=== PATIENT | male | born 1985 | race Caucasian/White ===

== ENCOUNTER 2024-04-16 19:25 | Emergency (ER) | payer MEDICARE ==
[2024-04-16] MEDS ORDERED: methocarbamoL 750 MG TAB ONE (20:40)
[2024-04-16] MEDS ORDERED: ONDANSETRON 4 MG/2 ML VIAL ONE (20:40)
[2024-04-16] MEDS ORDERED: HYDROCORTISONE SUC 100 MG INJ ONE (20:41)
[2024-04-16] MEDS ORDERED: MORPHINE 4 MG/ML SYR ONE (20:41)
[2024-04-16] MEDS ORDERED: KETOROLAC 30 MG/ML INJ ONE (20:41)
--- NOTE | 2024-04-16 21:58 | RAD REPORT ---
EXAM DESCRIPTION: CT - Spine Lumbar Wo Con - 04/16/2024 9:22 pm CLINICAL HISTORY: Radiculopathy. lumbar pain COMPARISON: <Comparisons> TECHNIQUE: Axial noncontrast CT imaging of the lumbar spine was performed with coronal and sagittal re-formatted images. All CT scans are performed using dose optimization technique as appropriate and may include automated exposure control or mA/KV adjustment according to patient size. FINDINGS: No acute lumbar spine fracture seen. No aggressive marrow pattern or malalignment. Paraspinal tissues are normal in thickness. No paraspinal abscess or hematoma seen. 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 Mild posterior disc bulges are present lower lumbar spine. IMPRESSION: No acute lumbar spine abnormality seen. Mild lower lumbar spondylosis is present.
[2024-04-16] MEDS ORDERED: HYDROCODONE/APAP 10/325 TAB ONE (22:09)
--- NOTE | 2024-04-16 22:10 | EDPHYS ---
Physician Documentation [facility] Name: Javed Mejia Age: 39 yrs Sex: Male : 1985 Arrival Date: 04/16/2024 Time: 19:25 Bed 17 Private MD: ED Physician Igor Hannah HPI: 04/16 22:04 This 39 yrs old Male presents to ER via Ambulatory with complaints of Low sp4 Back Pain, Leg Pain - leg weakness. 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 - Infectious Disease History:: Denies. - Social history:: Smoking status: Reported history of juuling and/or vaping. Vital Signs: 20:03 Pain 10/10; vc1 21:44 BP 135 / 75; Pulse 73; Pulse Ox 100% on R/A; Pain 7/10; tm6 22:22 BP 134 / 80; Pulse 74; Resp 19; Temp 97.1(TE); Pulse Ox 99% on R/A; Pain 4/10; tm6 20:03 Pain Scale: Adult vc1 21:44 Pain Scale: Adult tm6 22:22 Pain Scale: Adult tm6 MDM: 20:04 Patient medically screened. sp4 22:03 ED course: Exam Date: 04/16/24 EXAM DESCRIPTION: CT - Spine Lumbar Wo Con - 04/16/2024 sp4 9:22 pm CLINICAL HISTORY: Radiculopathy. lumbar pain COMPARISON: TECHNIQUE: Axial noncontrast CT imaging of the lumbar spine was performed with coronal and sagittal re-formatted images. All CT scans are performed using dose optimization technique as appropriate and may include automated exposure control or mA/KV adjustment according to patient size. FINDINGS: No acute lumbar spine fracture seen. No aggressive marrow pattern or malalignment. Paraspinal tissues are normal in thickness. No paraspinal abscess or hematoma seen. 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 Mild posterior disc bulges are present lower lumbar spine. IMPRESSION: No acute lumbar spine abnormality seen. Mild lower lumbar spondylosis is present . 22:08 ED course: Exam Date: 04/16/24 EXAM DESCRIPTION: CT - Spine Lumbar Wo Con - 04/16/2024 sp4 9:22 pm CLINICAL HISTORY: Radiculopathy. lumbar pain COMPARISON: TECHNIQUE: Axial noncontrast CT imaging of the lumbar spine was performed with coronal and sagittal re-formatted images. All CT scans are performed using dose optimization technique as appropriate and may include automated exposure control or mA/KV adjustment according to patient size. FINDINGS: No acute lumbar spine fracture seen. No aggressive marrow pattern or malalignment. Paraspinal tissues are normal in thickness. No paraspinal abscess or hematoma seen. 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 Mild posterior disc bulges are present lower lumbar spine. IMPRESSION: No acute lumbar spine abnormality seen. Mild lower lumbar spondylosis is present. 04/16 20:13 Order name: CT Lumbar Spine Wo Con; Complete Time: 22:07 sp4 04/16 20:12 Order name: Saline Lock; Complete Time: 20:55 sp4 Administered Medications: 20:48 Drug: Ondansetron IVP 4 mg IVP once; over 2 minutes Route: IVP; Site: right antecubital;nj1 20:50 Drug: Ketorolac IVP 30 mg IVP once Route: IVP; Site: right antecubital; nj1 20:51 Drug: Solu-CORTEF IVP 100 mg IVP once Route: IVP; Site: right antecubital; nj1 20:55 Drug: morphine IVP or IV 8 mg IVP once over 4 mins Route: IVP; Infused Over: 4 mins; nj1 Site: right antecubital; 20:55 Drug: Methocarbamol PO 1500 mg PO once Route: PO; nj1 22:23 Drug: [place] PO 10 mg-325 mg 1 tabs PO once Route: PO; tm6 22:55 Drug: Baclofen PO 10 mg PO once Route: PO; tm6 Disposition Summary: 04/16/24 22:09 Discharge Ordered Problem: new sp4 Symptoms: have improved sp4 Condition: Stable sp4 Diagnosis - Low back pain sp4 - Acute lumbar sprain, sp4 Followup: sp4 - With: Michel Ott MD - When: 7 - 10 days - Reason: Recheck today's complaints Discharge Instructions: - Discharge Summary Sheet sp4 - Acute Back Pain, Adult sp4 Forms: - Patient Portal Instructions sp4 - Work release form tm6 Prescriptions: - naproxen 500 mg Oral tablet - take 1 tablet ORAL route every 8 hours as needed for pain; 30 tablet; Refills: sp4 0, Product Selection Permitted - tramadol 100 mg Oral tablet - take 1 tablet ORAL route every 8 hours PRN pain; 20 tablet; Refills: 0, Product sp4 Selection Permitted - Baclofen 10 mg Oral tablet - take 1 tablet ORAL route 3 times per day; 60 tablet; Refills: 0, Product sp4 Selection Permitted Signatures: Dispatcher [employer] Rosa Castellon RN RN vc1 Igor Hannah MD MD sp4 Yesenia Fisher RN RN nj1 Joni Moise RN RN tm6
--- NOTE | 2024-04-16 22:10 | ER ---
Nurse's Notes [facility] Name: Javed Mejia Age: 39 yrs Sex: Male : 1985 Arrival Date: 04/16/2024 Time: 19:25 Bed 17 Private MD: Diagnosis: Low back pain;Acute lumbar sprain, Presentation: 04/16 20:03 Chief complaint: Chief complaint: Patient states: Back pain with severe leg weakness. vc1 20:03 Coronavirus screen: Client denies travel out of the [place] in the last 14 days. At this vc1 time, the client does not indicate any symptoms associated with coronavirus-19. Ebola Screen: Patient negative for fever greater than or equal to 101.5 degrees Fahrenheit, and additional compatible Ebola Virus Disease symptoms Patient denies exposure to infectious person. Patient denies travel to an Ebola-affected area in the 21 days before illness onset. No symptoms or risks identified at this time. Initial Sepsis Screen: Does the patient meet any 2 criteria? No. Patient's initial sepsis screen is negative. Does the patient have a suspected source of infection? No. Patient's initial sepsis screen is negative. Risk Assessment: Do you want to hurt yourself or someone else? Patient reports no desire to harm self or others. Onset of symptoms is unknown. 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 - Infectious Disease History:: Denies. - Social history:: Smoking status: Reported history of juuling and/or vaping. Screenin:01 [facility] ED Fall Risk Assessment (Adult) History of falling in the last 3 months, nj1 including since admission Yes- physiologic fall (2 pts) Confusion or Disorientation No (0 pts) Intoxicated or Sedated No (0 pts) Impaired Gait Yes (1 pt) Mobility Assist Device Used Yes (1 pt) Altered Elimination No (0 pt) Score/Fall Risk Level 3 or more points = High Risk Oriented to surroundings, Maintained a safe environment, Hourly rounding (assess needs \T\ fall precautionary measures) done, Utilized family, sitter, or virtual sleeve sewer as indicated. Abuse screen: Denies threats or abuse. Denies injuries from another. Nutritional screening: No deficits noted. Tuberculosis screening: No symptoms or risk factors identified. Assessment: 20:45 General: Appears in no apparent distress. uncomfortable, Behavior is calm, cooperative, nj1 appropriate for age. Pain: Complains of pain in back Pain currently is 10 out of 10 on a pain scale. Neuro: Level of Consciousness is awake, alert, obeys commands, Oriented to person, place, time, situation, Gait is came in personal wheel chair. 20:45 Cardiovascular: Patient's skin is warm and dry. Respiratory: Airway is patent nj1 Respiratory effort is even, unlabored. 21:45 Reassessment: Patient and/or family updated on plan of care and expected duration. Pain tm6 level reassessed. Patient is alert, oriented x 3, equal unlabored respirations, skin warm/dry/pink. 22:22 Reassessment: Patient appears in no apparent distress at this time. tm6 22:22 Reassessment: discharge pending receipt of Baclofen from floor. Frame Table Operator Neela venegas is bringing. Vital Signs: 20:03 Pain 10/10; vc1 21:44 BP 135 / 75; Pulse 73; Pulse Ox 100% on R/A; Pain 7/10; tm6 22:22 BP 134 / 80; Pulse 74; Resp 19; Temp 97.1(TE); Pulse Ox 99% on R/A; Pain 4/10; tm6 20:03 Pain Scale: Adult vc1 21:44 Pain Scale: Adult tm6 22:22 Pain Scale: Adult tm6 ED Course: 19:30 Patient arrived in ED. ae5 20:02 Igor Hannah MD is Attending Physician. sp4 20:37 Yesenia Fisher RN is Primary Nurse. nj1 20:58 Triage completed. vc1 21:00 Report given to Joni Crisostomo RN. nj1 21:02 Arm band placed on. nj1 21:02 Patient has correct armband on for positive identification. Bed in low position. Call nj1 light in reach. Adult w/ patient. Provided Education on: call light, fall precautions. 21:23 CT Lumbar Spine Wo Con In Process Unspecified. EDMS 22:09 Michel Ott MD is Referral Physician. sp4 22:22 No provider procedures requiring assistance completed. IV discontinued, intact, tm6 bleeding controlled, No redness/swelling at site. Pressure dressing applied. Administered Medications: 20:48 Drug: Ondansetron IVP 4 mg IVP once; over 2 minutes Route: IVP; Site: right antecubital;nj1 20:50 Drug: Ketorolac IVP 30 mg IVP once Route: IVP; Site: right antecubital; nj1 20:51 Drug: Solu-CORTEF IVP 100 mg IVP once Route: IVP; Site: right antecubital; nj1 20:55 Drug: morphine IVP or IV 8 mg IVP once over 4 mins Route: IVP; Infused Over: 4 mins; nj1 Site: right antecubital; 20:55 Drug: Methocarbamol PO 1500 mg PO once Route: PO; nj1 22:23 Drug: [place] PO 10 mg-325 mg 1 tabs PO once Route: PO; tm6 22:55 Drug: Baclofen PO 10 mg PO once Route: PO; tm6 Medication: 21:02 VIS not applicable for this client. vc1 Outcome: 22:09 Discharge ordered by . sp4 22:22 Discharged to home via wheelchair, with family, tm6 22:22 Condition: stable 22:22 Discharge instructions given to patient, family, Instructed on discharge instructions, follow up and referral plans. medication usage, Demonstrated understanding of instructions, follow-up care, medications, Prescriptions given X 3, 22:57 Patient left the ED. tm6 Signatures: Dispatcher [employer] EDMS Rosa Dudley RN RN vc1 Igor Hannah MD MD sp4 Yesenia Fisher RN RN nj1 Joni Moise RN RN tm6 Marybel Hoang ae5 Corrections: (The following items were deleted from the chart) 20:58 20:55 Chief complaint: vc1 vc1
[2024-04-16] MEDS ORDERED: BACLOFEN 10 MG TAB ONE (22:36)
[2024-04-16 23:30] VITALS: BP 134/80; TEMP 97.1; O2SAT 99
== END 2024-04-16 22:57 | disposition home or self-care (01) ==
LOC: ER 19:25
DX: S33.5XXA Sprain of ligaments of lumbar spine, initial encounter (principal)
CPT/HCPCS: 72131; 96375; 96374; 99284; J1720; J2405

== ENCOUNTER 2024-06-17 08:56 | Emergency (ER) | payer MEDICARE ==
[2024-06-17] MEDS ORDERED: GABAPENTIN 300 MG CAP ONE ×3 (09:21→17:32)
[2024-06-17] MEDS ORDERED: FENTANYL CITR 100 MCG/2 ML ONE ×3 (09:21→15:36)
[2024-06-17] MEDS ORDERED: WATER FOR INJ,STERILE 10 ML ONE (09:22)
[2024-06-17] MEDS ORDERED: NA CHLORIDE 0.9% 100 ML ONE (09:28)
--- NOTE | 2024-06-17 10:06 | RAD REPORT ---
EXAM DESCRIPTION: [place] Single View06/17/2024 9:56 am CLINICAL HISTORY: Cough COMPARISON: none FINDINGS: The lungs appear clear of acute infiltrate. The heart is normal size IMPRESSION: No acute abnormalities displayed
[2024-06-17 10:19] LABS: Absolute Basophils 0.1 K/uL (0-0.5); Absolute Eosinophils 0.2 K/uL (0-0.5); Absolute Lymphocytes (CBC) 2.5 K/uL (0.7-4.9); Absolute Monocytes 0.6 K/uL (0.1-1.3); Absolute Neutrophil 3.9 K/uL (1.8-8.0); Basophils % 0.9 % (0-1.3); Eosinophils % 2.7 % (0-4.4); Hematocrit 36.8 % (39.6-49.0); Hemoglobin 12.5 g/dL (13.6-17.9); Lymphocytes % 34.7 % (15.3-44.8); MCH 29.3 pg (27.0-35.0); MCV 86.3 fL (80-100); MPV 7.6 fL (7.6-11.3); Monocytes % 7.6 % (3.3-12.3); Neutrophils % 54.1 % (41.7-73.7); Platelets 322 thou/uL (152-406); RBC Red Blood Cell Count 4.26 M/uL (4.33-5.43); Red Cell Distribution Width 13.6 % (12.1-15.2)
[2024-06-17 10:38] LABS: Anion Gap 8.1 mEq/L (5.0-15.0); BUN Blood Urea Nitrogen 12 mg/dL (7-18); Bicarbonate 26 mEq/L (21-32); Glomerular Filtration Rate 95 ml/min (=/>90); Glucose Level 116 mg/dL (74-106); Potassium 4.1 mEq/L (3.5-5.1); Sodium Level 138 mEq/L (136-145); Troponin High Sensitivity < 3.0 pg/mL (<58.9)
[2024-06-17 11:53] LABS: SARS-CoV-2 Antigen CONTROL BLUE LINE VIS/BG OK; SARS-CoV-2 Antigen Rapid Res Negative (Negative)
[2024-06-17] MEDS ORDERED: LORazepam 2 MG/ML VIAL ONE (12:20)
[2024-06-17] MEDS ORDERED: KETOROLAC 30 MG/ML INJ ONE (14:44)
--- NOTE | 2024-06-17 15:40 | RAD REPORT ---
EXAM DESCRIPTION: MRI - Brain W/Wo Cont - 06/17/2024 2:51 pm CLINICAL HISTORY: MS flare, BL LE weakness, eval for active lesions COMPARISON: None available. TECHNIQUE: Multiplanar multisequence MRI of the brain performed without IV contrast. FINDINGS: No evidence of acute infarct or other diffusion signal abnormality. No evidence of acute intracranial hemorrhage or abnormal extra-axial fluid collections. Ventricular caliber within normal for age. Midline structures are unremarkable. No discrete white matter signal abnormalities. No mass effect or midline shift. No abnormal enhancement Major vascular flow voids are preserved. Mastoid air cells are well aerated. Mild scattered inflammatory mucosal thickening throughout the par anasal sinuses. IMPRESSION: No acute intracranial process. No discrete white matter signal abnormalities to suggest demyelinating lesions on MRI. No evidence of abnormal enhancement or mass effect.
--- NOTE | 2024-06-17 16:01 | RAD REPORT ---
EXAM DESCRIPTION: MRI - Spine Lumbar W/Wo Cont - 06/17/2024 2:51 pm CLINICAL HISTORY: MS flare, BL LE weakness, eval for active lesions COMPARISON: No comparisons TECHNIQUE: Multiplanar multisequence MRI of the lumbar spine performed, before and after intravenous administration of 20 mL MultiHance. FINDINGS: Preserved lumbar lordosis without spondylolisthesis. Vertebral body heights are well main tained. No suspicious marrow signal. No paraspinal masses or edema. Conus terminates at the appropriate level, and demonstrates no focal signal abnormalities. Cauda equi na roots are unremarkable, with no clumping or thickening. No abnormal enhancement. T12-L1: No significant findings. L1-L2: No significant findings. L2-L3: No significant findings. L3-L4 level: No significant findings. L4-L5 level: Small central disc bulge. Mild facet arthropathy more so on the left. No significant jere tral canal or foraminal stenosis. L5-S1 level: Small central disc bulge. Mild to moderate facet arthropathy bilaterally with small extr insic synovial cyst on the left measuring 4 mm. No significant central canal stenosis or foraminal na rrowing. IMPRESSION: No signal abnormalities or abnormal enhancement along the distal cord or conus. Small disc bulges and mild to moderate facet arthropathy at L4-5 and L5-S1, without significant steno sis.
--- NOTE | 2024-06-17 16:10 | RAD REPORT ---
EXAM DESCRIPTION: MRI - C Spine W/Wo Cont - 06/17/2024 2:51 pm CLINICAL HISTORY: MS flare, BL LE weakness, eval for active lesions COMPARISON: None. TECHNIQUE: Multiplanar multisequence MRI of the cervical spine, obtained before and after intraven ous administration of 20 mL MultiHance. FINDINGS: Cervical vertebral bodies are normal in height and alignment. No suspicious marrow edema o r marrow replacing process. Cerebellar tonsils and mid-line skull base show no suspicious finding. No significant finding at the C1 and C2 levels. C2-3 level: No significant findings. C3-4 level: Asymmetric uncovertebral joint spurring on the left contributes to mild left neural cali inal narrowing. No central canal stenosis. C4-5 level: No significant findings. C5-6 level: No significant findings. C6-7 level: No significant findings. C7-T1 level: No significant findings. Cervical cord shows no focal narrowing, edema, or signal abnormality. No abnormal enhancement on the post-contrast images. IMPRESSION: Mild spondylotic changes at C3-4 contributing to mild left neural foraminal narrowing. O therwise normal contrast enhanced MRI cervical spine examination.
--- NOTE | 2024-06-17 16:13 | RAD REPORT ---
EXAM DESCRIPTION: MRI - Thoracic Spine W/Wo Contr - 06/17/2024 2:51 pm CLINICAL HISTORY: MS flare, BL LE weakness, eval for active lesions COMPARISON: No comparisons TECHNIQUE: Multiplanar multisequence MRI of the thoracic spine, obtained before and after intraven ous administration of 20 mL MultiHance. FINDINGS: The vertebral body heights and disc spaces are maintained. Marrow pattern of the thoracic spine is within normal limits. No significant herniated disc, canal stenosis or foraminal stenosis at any level. No paraspinal mass or hematoma. The thoracic cord is normal in size and signal. No abnormal intramedullary or extramedullary enhance ment. Incidentally noted 9 mm right renal parapelvic cyst, benign in appearance. IMPRESSION: Normal thoracic spine MRI, without evidence of cord signal abnormality or abnormal enhan cement.
--- NOTE | 2024-06-17 17:08 | EDPHYS ---
Physician Documentation [facility] Name: Javed Mejia Age: 39 yrs Sex: Male : 1985 Arrival Date: 06/17/2024 Time: 08:56 Bed 6 Private MD: ED Physician Alexander Mcgarry HPI: 06/17 09:37 This 39 yrs old Male presents to ER via EMS with complaints of Trouble ec2 Walking - MS flare. 09:37 Patient arrives today due to feeling unwell. Patient reports that he has been having ec2 bilateral lower extremity weakness along with numbness. Reports history of multiple sclerosis. Patient reports that he supposed to be on steroids however does not take them regularly. Patient reports some generalized weakness. Patient ports no fevers or chills, nausea or vomiting.. Historical: - Allergies: 09:03 No Known Allergies; ph - PMHx: 09:03 Guillan [place]; Multiple Sclerosis; ph - PSHx: 09:03 Appendectomy; ph - Immunization history:: Adult Immunizations unknown. - Infectious Disease History:: Denies. - Social history:: Smoking status: Reported history of juuling and/or vaping. ROS: 09:37 Constitutional: as per hpi ec2 Exam: 09:37 Constitutional: GEN: NAD Head: atraumatic Eyes: EOMI Ears: External ears are ec2 normal. CV: regular rate LUNGS: no respiratory distress ABD: non-distended SKIN: No evidence of rashes MSK: no evidence of trauma. Neuro: Cranial nerves II through XII intact, strength intact in the bilateral upper extremities, diminished strength in the bilateral lower extremities however weak. Diminished sensation bilateral lower extremities as well. Vital Signs: 09:01 BP 138 / 82; Pulse 90; Resp 18; Temp 97.5; Pulse Ox 96% on R/A; Weight 122.02 kg; ph Height 5 ft. 11 in. ; 10:00 BP 131 / 75; Pulse 74; Resp 18; Pulse Ox 98% on R/A; ph 10:50 BP 123 / 76; Pulse 79; Resp 16; Pulse Ox 98% on R/A; ph 12:00 ph 13:00 ph 14:00 ph 14:45 BP 125 / 71; Pulse 85; Resp 18; Pulse Ox 95% on R/A; ph 09:01 Body Mass Index 37.52 (122.02 kg, 180.34 cm) ph 12:00 pt in MRI ph 13:00 Pt in MRI ph 14:00 Pt in MRI ph MDM: 09:03 Patient medically screened. ec2 09:37 Data reviewed: vital signs. ED course: . ec2 09:39 ED course: Patient arrives today for evaluation of bilateral lower extremity weakness. ec2 Patient has a history of multiple sclerosis. Supposed to be on steroids. Examination remarkable for well-appearing nontoxic individual has bilateral upper extremity strength intact but does have diminished sensation with administration of bilateral lower extremities. Will obtain lab work, MR imaging to evaluate for cerebral spinal cord lesions for active MS disease. Will give the patient high-dose steroids, gabapentin as well as fentanyl for pain control. Differential includes multiple sclerosis flare, electrolyte disturbances, renal dysfunction, anemia. 10:47 ED course: Metabolic profile reassuring. CBC reassuring, troponin undetectable, chest ec2 x-ray shows no acute process.. 15:01 ED course: EKG independently reviewed and interpreted by me, shows normal sinus rhythm, ec2 rate of 85, no acute ST segment elevations, intervals are nonconcerning.. 16:12 ED course: MRI of the brain, C, L-spine without actionable process.. ec2 17:05 ED course: Patient reports persistent pain. MR is negative for acute pathology. Patient ec2 states that he is still having difficulty walking, I discussed the case with his , he has been having his issues intermittently for the past 9 years, has a will trial at home, I recommended inpatient hospitalization along with rehabilitation and patient declined he said he did not want to be admitted to the hospital. I started him that if his baseline is ambulatory and will be best to have return him in that state however he states that he will follow-up outpatient. He states he has seen his primary care doctor and they had referred him to neurology for this exact problem before. He states he will follow-up outpatient, also attempted to offer recommendation for admission however patient was adamant about returning home. Patient discharged home and instructed to return if he changes his mind.. 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 No bowel or bladder incontinence.. 06/17 09:11 Order name: Basic Metabolic Panel; Complete Time: 10:47 ec2 06/17 09:11 Order name: CBC with Diff; Complete Time: 10:47 ec2 06/17 09:11 Order name: Troponin HS; Complete Time: 10:47 ec2 06/17 09:11 Order name: Influenza Screen (a \T\ B); Complete Time: 11:55 ec2 06/17 09:11 Order name: SARS RAPID; Complete Time: 11:55 ec2 06/17 09:11 Order name: XRAY Chest (1 view); Complete Time: 10:47 ec2 06/17 14:52 Order name: Brain W/Wo Cont; Complete Time: 15:56 EDMS 06/17 14:52 Order name: C Spine W/Wo Cont; Complete Time: 16:11 EDMS 06/17 14:52 Order name: Spine Lumbar W/Wo Cont; Complete Time: 16:11 EDMS 06/17 14:52 Order name: Thoracic Spine W/Wo Contr; Complete Time: 16:16 EDMS 06/17 09:11 Order name: EKG; Complete Time: 09:11 ec2 06/17 09:11 Order name: Cardiac monitoring; Complete Time: 14:58 ec2 06/17 09:11 Order name: EKG - Nurse/Tech; Complete Time: 14:58 ec2 06/17 09:11 Order name: IV Saline Lock; Complete Time: 10:10 ec2 06/17 09:11 Order name: Labs collected and sent; Complete Time: 10:10 ec2 06/17 09:11 Order name: O2 Per Protocol; Complete Time: 10:46 ec2 06/17 09:11 Order name: O2 Sat Monitoring; Complete Time: 10:46 ec2 06/17 09:11 Order name: Misc. Order: give 1000 mg methylprednisolone; Complete Time: 10:46 ec2 Administered Medications: 10:00 Drug: Gabapentin PO 600 mg PO once Route: PO; ph 10:30 Follow up: Response: No adverse reaction ph 10:15 Drug: MethylPrednisoLONE IVP 1000 mg IVP once Route: IVP; Site: right antecubital; ph 10:30 Follow up: Response: No adverse reaction ph 10:15 Drug: fentaNYL (PF) IVP 25 mcg IVP once Route: IVP; Site: right antecubital; ph 10:30 Follow up: Response: No adverse reaction; Pain is decreased; RASS: Alert and Calm (0) ph 10:50 Drug: fentaNYL (PF) IVP 25 mcg IVP once Route: IVP; Site: right antecubital; ph 11:10 Follow up: Response: No adverse reaction; Pain is decreased; RASS: Alert and Calm (0) ph 12:20 CANCELLED (Physician Discretion): mg IVP once ec2 12:53 CANCELLED (Physician Discretion): ativan2 mg IVP once ec2 12:58 Drug: fentaNYL (PF) IVP 100 mcg IVP once Route: IVP; Site: right antecubital; ph 13:10 Follow up: Response: No adverse reaction; Pain is decreased; RASS: Alert and Calm (0) ph 14:48 Drug: Ketorolac IVP 15 mg IVP once Route: IVP; Site: right antecubital; ph 15:10 Follow up: Response: No adverse reaction; Pain is decreased ph 15:45 Drug: fentaNYL (PF) IVP 50 mcg IVP once Route: IVP; Site: right antecubital; ph 16:10 Follow up: Response: (VIS) Vaccine information sheet provided today. Questions and/or ph concerns addressed. VIS edition date: Jun 01, 2021.; Pain is decreased; RASS: Alert and Calm (0) 17:40 Drug: Methocarbamol PO 500 mg PO once Route: PO; ph 17:43 Follow up: Response: No adverse reaction; Medication Administered at Departure ph 17:40 Drug: Gabapentin PO 600 mg PO once Route: PO; ph 17:43 Follow up: Response: No adverse reaction; Medication Administered at Departure ph Disposition Summary: 06/17/24 17:07 Discharge Ordered Condition: Stable ec2 Diagnosis - Lower extremity weakness ec2 Followup: ec2 - With: Private Physician - When: - Reason: Re-evaluation by your physician Discharge Instructions: - Discharge Summary Sheet ec2 - Weakness, [id number] ec2 Forms: - Medication Reconciliation Form ec2 - Antibiotic Education ec2 - Prescription Opioid Use ec2 - Patient Portal Instructions ec2 - Leadership Thank You Letter ec2 Prescriptions: - gabapentin 600 mg Oral tablet - take 1 tablet ORAL route 3 times per day; 30 tablet; Refills: 0, Product ec2 Selection Permitted - methocarbamol 500 mg Oral tablet - take 2 tablets ORAL route 4 times per day; 30 tablet; Refills: 0, Product ec2 Selection Permitted Signatures: Dispatcher [employer] Mendy Núñez RN RN Mcgarry, MD EVARISTO Munoz ec2 Corrections: (The following items were deleted from the chart) 12:20 12:16 Diazepam IVP 10 mg IVP once ordered. ec2 ec2 12:53 12:20 Ativan IVP 2 mg IVP once ordered. ec2 ec2 09:17 Brain With Cont ordered. EDMS EDMS 09:17 C Spine W Cont ordered. EDMS EDMS 09:17 Spine Lumbar W/Cont ordered. EDMS EDMS 09:17 Thoracic Spine W/Con ordered. EDMS EDMS
--- NOTE | 2024-06-17 17:08 | ER ---
Nurse's Notes [facility] Name: Javed Mejia Age: 39 yrs Sex: Male : 1985 Arrival Date: 06/17/2024 Time: 08:56 Bed 6 Private MD: Diagnosis: Lower extremity weakness Presentation: 06/17 09:01 Chief complaint: EMS states: Pt hx of MS, states that this morning he lost feeling in ph bilateral legs and was unable to walk, also c/o back pain and aching all over, 4 mg Zofran and 30 IM Toradol given. Coronavirus screen: Vaccine status: Patient reports being unvaccinated. Ebola Screen: No symptoms or risks identified at this time. Initial Sepsis Screen: Does the patient meet any 2 criteria? No. Patient's initial sepsis screen is negative. Does the patient have a suspected source of infection? No. Patient's initial sepsis screen is negative. Risk Assessment: Do you want to hurt yourself or someone else? Patient reports no desire to harm self or others. Onset of symptoms was June 17, 2024. 09:01 Method Of Arrival: EMS: [facility] 09:01 Acuity: MARCE 3 ph Triage Assessment: 09:03 General: Appears in no apparent distress. uncomfortable, Behavior is calm, cooperative. ph Pain: Complains of pain in back. 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 Cardiovascular: Capillary refill < 3 seconds in bilateral fingers Patient's skin is warm and dry. Respiratory: Airway is patent Respiratory effort is even, unlabored. Derm: Skin is pink, warm \T\ dry. Musculoskeletal: Reports numbness in right leg and left leg. Historical: - Allergies: 09:03 No Known Allergies; ph - PMHx: 09:03 Guillan [place]; Multiple Sclerosis; ph - PSHx: 09:03 Appendectomy; ph - Immunization history:: Adult Immunizations unknown. - Infectious Disease History:: Denies. - Social history:: Smoking status: Reported history of juuling and/or vaping. Screenin:05 [facility] ED Fall Risk Assessment (Adult) History of falling in the last 3 months, ph including since admission Yes- physiologic fall (2 pts) Confusion or Disorientation No (0 pts) Intoxicated or Sedated No (0 pts) Impaired Gait Yes (1 pt) Mobility Assist Device Used No (0 pt) Altered Elimination No (0 pt) Score/Fall Risk Level 3 or more points = High Risk Oriented to surroundings, Maintained a safe environment, Hourly rounding (assess needs \T\ fall precautionary measures) done, Used ambulatory aids as needed (educated on \T\ assisted with). Abuse screen: Denies threats or abuse. Denies injuries from another. 09:06 Nutritional screening: No deficits noted. Tuberculosis screening: No symptoms or risk ph factors identified. Assessment: 09:05 General: SEE TRIAGE ASSESSMENT. ph 10:50 Reassessment: Patient appears in no apparent distress at this time. Patient and/or ph family updated on plan of care and expected duration. Pain level reassessed. Patient is alert, oriented x 3, equal unlabored respirations, skin warm/dry/pink. Pt requesting more pain medication for MRI. 12:30 Reassessment: Pt in MRI. ph 14:00 Reassessment: Pt remains in MRI. ph 15:00 Reassessment: Patient appears in no apparent distress at this time. Patient and/or ph family updated on plan of care and expected duration. Pain level reassessed. Patient is alert, oriented x 3, equal unlabored respirations, skin warm/dry/pink. Pt requesting pain medication. 16:30 Reassessment: Patient appears in no apparent distress at this time. Patient and/or ph family updated on plan of care and expected duration. Pain level reassessed. Patient is alert, oriented x 3, equal unlabored respirations, skin warm/dry/pink. 17:42 Reassessment: Patient appears in no apparent distress at this time. Patient and/or ph family updated on plan of care and expected duration. Pain level reassessed. Patient is alert, oriented x 3, equal unlabored respirations, skin warm/dry/pink. D/C pending ride home, pt states that his brother is bringing his personal wheelchair. Vital Signs: 09:01 BP 138 / 82; Pulse 90; Resp 18; Temp 97.5; Pulse Ox 96% on R/A; Weight 122.02 kg; ph Height 5 ft. 11 in. ; 10:00 BP 131 / 75; Pulse 74; Resp 18; Pulse Ox 98% on R/A; ph 10:50 BP 123 / 76; Pulse 79; Resp 16; Pulse Ox 98% on R/A; ph 12:00 ph 13:00 ph 14:00 ph 14:45 BP 125 / 71; Pulse 85; Resp 18; Pulse Ox 95% on R/A; ph 09:01 Body Mass Index 37.52 (122.02 kg, 180.34 cm) ph 12:00 pt in MRI ph 13:00 Pt in MRI ph 14:00 Pt in MRI ph ED Course: 08:58 Patient arrived in ED. iw 09:00 Mendy Patel, RN is Primary Nurse. ph 09:03 Alexander Mcgarry MD is Attending Physician. ec2 09:03 Triage completed. ph 09:05 Arm band placed on Patient placed in an exam room, on a stretcher, on pulse oximetry. ph 09:06 Patient has correct armband on for positive identification. Bed in low position. Call ph light in reach. Side rails up X2. Pulse ox on. NIBP on. Door closed. Noise minimized. Warm blanket given. Pillow given. 09:58 XRAY Chest (1 view) In Process Unspecified. EDMS 10:09 Accessed peripheral vein via ultrasound, utilizing dynamic ultrasound technique using mb9 ,sterile technique, per hospital protocol. Clean \T\ dry. Dressing intact. Good blood return. Flushes easily. 18 g right upper arm. 14:52 Brain W/Wo Cont In Process Unspecified. EDMS 14:52 C Spine W/Wo Cont In Process Unspecified. EDMS 14:52 Spine Lumbar W/Wo Cont In Process Unspecified. EDMS 14:52 Thoracic Spine W/Wo Contr In Process Unspecified. EDMS 17:42 No provider procedures requiring assistance completed. IV discontinued, intact, ph bleeding controlled, No redness/swelling at site. Pressure dressing applied. Administered Medications: 10:00 Drug: Gabapentin PO 600 mg PO once Route: PO; ph 10:30 Follow up: Response: No adverse reaction ph 10:15 Drug: MethylPrednisoLONE IVP 1000 mg IVP once Route: IVP; Site: right antecubital; ph 10:30 Follow up: Response: No adverse reaction ph 10:15 Drug: fentaNYL (PF) IVP 25 mcg IVP once Route: IVP; Site: right antecubital; ph 10:30 Follow up: Response: No adverse reaction; Pain is decreased; RASS: Alert and Calm (0) ph 10:50 Drug: fentaNYL (PF) IVP 25 mcg IVP once Route: IVP; Site: right antecubital; ph 11:10 Follow up: Response: No adverse reaction; Pain is decreased; RASS: Alert and Calm (0) ph 12:20 CANCELLED (Physician Discretion): [id number] mg IVP once ec2 12:53 CANCELLED (Physician Discretion): ativan2 mg IVP once ec2 12:58 Drug: fentaNYL (PF) IVP 100 mcg IVP once Route: IVP; Site: right antecubital; ph 13:10 Follow up: Response: No adverse reaction; Pain is decreased; RASS: Alert and Calm (0) ph 14:48 Drug: Ketorolac IVP 15 mg IVP once Route: IVP; Site: right antecubital; ph 15:10 Follow up: Response: No adverse reaction; Pain is decreased ph 15:45 Drug: fentaNYL (PF) IVP 50 mcg IVP once Route: IVP; Site: right antecubital; ph 16:10 Follow up: Response: (VIS) Vaccine information sheet provided today. Questions and/or ph concerns addressed. VIS edition date: Jun 01, 2021.; Pain is decreased; RASS: Alert and Calm (0) 17:40 Drug: Methocarbamol PO 500 mg PO once Route: PO; ph 17:43 Follow up: Response: No adverse reaction; Medication Administered at Departure ph 17:40 Drug: Gabapentin PO 600 mg PO once Route: PO; ph 17:43 Follow up: Response: No adverse reaction; Medication Administered at Departure ph Medication: 09:06 VIS not applicable for this client. ph Outcome: 17:07 Discharge ordered by . ec2 17:43 Discharged to home via wheelchair, with family, ph 17:43 Condition: good 17:43 Discharge instructions given to patient, Instructed on discharge instructions, follow up and referral plans. medication usage, Demonstrated understanding of instructions, follow-up care, medications, Prescriptions given X 2, 17:53 Patient left the ED. ph Signatures: Dispatcher [employer] Marilee Avila RN RN Mendy Patel RN RN ph Wilkerson, Mary Beth, RN RN mb9 Mcgarry, Alexander, MD MD ec2
[2024-06-17] MEDS ORDERED: methocarbamoL 500 MG TAB ONE (17:32)
[2024-06-17 17:57] VITALS: TEMP 97.5
[2024-06-17 18:02] VITALS: BP 125/71; O2SAT 95
--- NOTE | 2024-06-18 13:29 | EKG ---
Test Date: 2024-06-17 Test Time: 14:57:24 Guidance Consultant: OLAYINKA MEASUREMENT RESULTS: Intervals: Rate: 85 CO: 164 QRSD: 100 QT: 380 QTc: 452 [place]: P: 41 CO: 164 QRS: 3 T: 47 INTERPRETIVE STATEMENTS: Normal sinus rhythm Minimal voltage criteria for LVH, may be normal variant Cannot rule out Anterior infarct, age undetermined Abnormal ECG Compared to ECG 12/19/2005 13:08:00 Left ventricular hypertrophy now present Myocardial infarct finding now present Electronically Signed On 06-18-24 13:26:47 CDT by Todd Goddard
== END 2024-06-17 17:53 | disposition home or self-care (01) ==
LOC: ER 08:56
DX: R53.1 Weakness (principal); R20.0 Anesthesia of skin; G35 Multiple sclerosis; Z11.52 Encounter for screening for COVID-19
CPT/HCPCS: 93005; 85025; 80048; 36415; 84484; 87804 ×2; 71045; 70553; 72156; 72158; 72157; 96375; 96374; 99285; 87811; A9577; J3010 ×3; J2919

== ENCOUNTER 2024-07-28 19:11 | Emergency (ER) | payer MEDICARE ==
[2024-07-28] MEDS ORDERED: ONDANSETRON 4 MG/2 ML VIAL ONE (19:39)
[2024-07-28] MEDS ORDERED: NA CHLORIDE 0.9% 1,000 ML ONE (19:39)
[2024-07-28 20:01] LABS: Absolute Eosinophils 0.2 K/uL (0-0.5); Absolute Lymphocytes (CBC) 2.8 K/uL (0.7-4.9); Absolute Monocytes 0.9 K/uL (0.1-1.3); Absolute Neutrophil 6.3 K/uL (1.8-8.0); Basophils % 0.3 % (0-1.3); Eosinophils % 2.2 % (0-4.4); Hematocrit 34.7 % (39.6-49.0); Hemoglobin 12.5 g/dL (13.6-17.9); Lymphocytes % 27.6 % (15.3-44.8); MCH 30.5 pg (27.0-35.0); MCV 84.7 fL (80-100); MPV 7.5 fL (7.6-11.3); Monocytes % 8.5 % (3.3-12.3); Neutrophils % 61.4 % (41.7-73.7); Platelets 314 thou/uL (152-406); RBC Red Blood Cell Count 4.09 M/uL (4.33-5.43); Red Cell Distribution Width 13.3 % (12.1-15.2)
[2024-07-28 20:18] LABS: ALT/SGPT 35 U/L (16-61); AST/SGOT 21 U/L (15-37); Albumin 3.9 g/dL (3.4-5.0); Albumin/Globulin Ratio 0.9 (1.1-1.8); Alkaline Phosphatase 77 U/L (45-117); Anion Gap 6.3 mEq/L (5.0-15.0); BUN Blood Urea Nitrogen 10 mg/dL (7-18); Bicarbonate 29 mEq/L (21-32); Bilirubin Total 0.3 mg/dL (0.2-1.0); Globulin 4.4 g/dL (2.3-3.5); Glomerular Filtration Rate 99 ml/min (=/>90); Glucose Level 112 mg/dL (74-106); Magnesium 1.9 mg/dL (1.6-2.4); Potassium 3.3 mEq/L (3.5-5.1); Protein, Total 8.3 g/dL (6.4-8.2); Sodium Level 139 mEq/L (136-145); Troponin High Sensitivity 3.7 pg/mL (<58.9)
[2024-07-28 20:21] LABS: Bilirubin Direct < 0.2 mg/dL (0-0.2); Bilirubin Indirect, Calculated 0.1 mg/dL (0.2-0.8)
[2024-07-28 20:39] LABS: Specific Gravity 1.021 (1.005-1.030); Sqamous Epithelial None Seen /HPF (None Seen); Urine Bacteria None Seen /HPF (<20); Urine Bilirubin NEGATIVE (Negative); Urine Blood Trace (Negative); Urine Clarity Clear (Clear); Urine Color Light-Yellow (Yellow); Urine Culture Reflex Order NOT NEEDED; Urine Glucose NEGATIVE (Negative); Urine Ketones NEGATIVE (Negative); Urine Microscopic Reflex YN ORDER UMIC; Urine Mucus Slight /HPF (None Seen); Urine Nitrite NEGATIVE (Negative); Urine Protein NEGATIVE (Negative); Urine RBC <5 /HPF (None Seen); Urine Urobilinogen Normal (Normal); Urine WBC <5 /HPF (<5); Urine pH 5.5 (5.0-7.0)
--- NOTE | 2024-07-28 20:40 | RAD REPORT ---
EXAMINATION: CT HEAD WITHOUT CONTRAST CLINICAL INDICATION: Male, 39 years old.DIZZINESS TECHNIQUE: Axial CT images from the skull base to the vertex without intravenous contrast. Coronal an d sagittal reformatted images were created from the data set. One or more of the following dose reduction techniques were used: Automated exposure control, adjustment of the mA and/or kV according to patient size, and/or iterative reconstruction. Unless otherwise specified, incidental findings do not require dedicated imaging follow-up. [id number]. COMPARISON: MR brain 06/17/24 FINDINGS: INTRACRANIAL: No acute intracranial hemorrhage. No hydrocephalus. No mass effect or midline shift. No significant white matter disease. VASCULATURE: No visualized abnormalities in the arteries or dural venous sinuses. SCALP/SKULL: No significant soft tissue or osseous abnormalities. SINUSES: Mild ethmoid air cell and left maxillary sinus thickening. IMPRESSION: No acute intracranial abnormality.
[2024-07-28 20:44] LABS: Barbiturates NEGATIVE (NEGATIVE); Benzodiazepines NEGATIVE (NEGATIVE); Cocaine NEGATIVE (NEGATIVE); METHAMPHETAM NEGATIVE (NEGATIVE); Methadone NEGATIVE (NEGATIVE); Opiates NEGATIVE (NEGATIVE); Phencyclidine NEGATIVE (NEGATIVE); THC Cannibis NEGATIVE (NEGATIVE)
[2024-07-28] MEDS ORDERED: POTASSIUM 25 MEQ EFFERV TAB ONE (21:27)
[2024-07-28] MEDS ORDERED: MECLIZINE HCL 12.5 MG TAB ONE (21:27)
[2024-07-28] MEDS ORDERED: METOCLOPRAMIDE 10 MG/2mL INJ ONE (22:40)
--- NOTE | 2024-07-29 00:08 | EDPHYS ---
Physician Documentation [facility] Name: Javed Mejia Age: 39 yrs Sex: Male : 1985 Arrival Date: 07/28/2024 Time: 19:11 Bed 6 Private MD: ROCAEL Physician Manuel Alejandra HPI: 07/28 21:30 This 39 yrs old Male presents to ER via EMS with complaints of Nausea, Dizziness. sb4 21:30 patient reports nausea, vomiting, and dizziness that began this afternoon while at [employer] work. he states that he started the carnivore diet 2 weeks ago but cheated today and ate burCellmax iva. he reports history of MS and receives IVIG quarterly. Denies any numbness/tingling. additionally, he reports ringing in his ears and nausea. denies any chest pain, shortness of breath. Historical: - Allergies: 19:20 No Known Allergies; kj2 - PMHx: 19:21 Guillan [place]; Multiple Sclerosis; kj2 - PSHx: 19:21 Appendectomy; kj2 - Immunization history:: Adult Immunizations unknown. - Infectious Disease History:: Denies. - Social history:: Smoking status: Reported history of juuling and/or vaping. ROS: 21:30 Constitutional: Negative for fever, chills, and weight loss, sb4 21:30 Abdomen/GI: Positive for nausea, 21:30 Neuro: Positive for dizziness, headache, tinnitus, 21:30 All other systems are negative, Exam: 21:30 Constitutional: This is a well developed, well nourished patient who is awake, alert, sb4 and in no acute distress. Head/Face: Normocephalic, atraumatic. Eyes: Extra-ocular motions intact. Periorbital areas with no swelling, redness, or edema. ENT: Mucous membranes moist. Cardiovascular: Regular rate and rhythm with a normal S1 and S2. Respiratory: Lungs have equal breath sounds bilaterally, clear to auscultation and percussion. No rales, rhonchi or wheezes noted. No increased work of breathing, no retractions or nasal flaring. Abdomen/GI: Soft, non-tender, no distension. Skin: Warm, dry with normal turgor. Normal color with no rashes, no lesions, and no evidence of cellulitis. MS/ Extremity: Pulses equal, no cyanosis. Neurovascular intact. Full, normal range of motion. Neuro: Awake and alert, GCS 15, oriented to person, place, time, and situation. Motor strength 5/5 in all extremities. Sensory grossly intact. Vital Signs: 19:19 BP 166 / 89; Pulse 83; Resp 18; Temp 98.2; Pulse Ox 98% on R/A; Weight 122.47 kg; kj2 Height 5 ft. 11 in. ; 19:23 BP 166 / 89; Pulse 83; Resp 18; Temp 98.2; Pulse Ox 98% on R/A; kj2 20:28 BP 144 / 81; Pulse 82; Resp 20; Pulse Ox 100% on R/A; kj2 22:15 BP 135 / 78; Pulse 77; Resp 18; Pulse Ox 100% on R/A; kj2 23:20 BP 133 / 78; Pulse 66; Resp 18; Pulse Ox 98% on R/A; kj2 07/29 00:36 BP 119 / 66; Pulse 76; Resp 20; Temp 98; Pulse Ox 98% on R/A; kj2 07/28 19:19 Body Mass Index 37.66 (122.47 kg, 180.34 cm) kj2 MDM: 07/28 19:24 Patient medically screened. sb4 07/29 00:07 Data reviewed: vital signs, nurses notes, EMS record, lab test result(s), radiologic sb4 studies, and as a result, I will discharge patient. Counseling: I had a detailed discussion with the patient and/or guardian regarding the historical points, exam findings, and any diagnostic results supporting the discharge/admit diagnosis, the presence of at least one elevated blood pressure reading (>120/80) during this emergency department visit, lab results, radiology results, the need for outpatient follow up, for definitive care, to return to the emergency department if symptoms worsen or persist or if there are any questions or concerns that arise at home. 07/28 19:30 Order name: Basic Metabolic Panel; Complete Time: 20:22 sb4 07/28 19:30 Order name: CBC with Diff; Complete Time: 20:13 sb4 07/28 19:30 Order name: Hepatic Function; Complete Time: 20:22 sb4 07/28 19:30 Order name: Magnesium; Complete Time: 20:22 sb4 07/28 19:30 Order name: Troponin High Sensitivity; Complete Time: 20:22 sb4 07/28 19:30 Order name: UDS; Complete Time: 20:45 sb4 07/28 19:30 Order name: Urinalysis w/ reflexes; Complete Time: 20:42 sb4 07/28 19:30 Order name: CT Head Brain wo Cont; Complete Time: 20:42 sb4 07/28 22:21 Order name: CT Abd/Pelvis - IV Contrast Only sb4 07/28 19:30 Order name: EKG; Complete Time: 19:31 sb4 07/28 19:30 Order name: Cardiac monitoring; Complete Time: 20:21 sb4 07/28 19:30 Order name: EKG - Nurse/Tech; Complete Time: 20:21 sb4 07/28 19:30 Order name: IV Saline Lock; Complete Time: 19:52 sb4 07/28 19:30 Order name: Labs collected and sent; Complete Time: 19:52 sb4 07/28 19:30 Order name: O2 Per Protocol; Complete Time: 19:52 sb4 07/28 19:30 Order name: O2 Sat Monitoring; Complete Time: 19:52 sb4 EC/02 20:33 Rate is 74 beats/min. Rhythm is regular, Normal Sinus Rhythm. MD interval is normal at sb4 144 msec. QRS interval is normal at 96 msec. QT interval is normal at 404 msec. No Q waves. T waves are Normal. No ST changes noted. Clinical impression: No evidence of ischemia. Interpreted by me. Reviewed by me. Administered Medications: 19:40 CANCELLED (Physician Discretion): ondansetron4 mg PO once sb4 19:52 Drug: NS 0.9% IV 1000 ml IV at 1 bolus Per protocol; 1000 mL bolus Route: IV; Rate: 1 kj2 bolus; Site: right antecubital; 21:24 Follow up: IV Status: Completed infusion; IV Intake: 1000ml kj2 22:44 Follow up: IV Status: Completed infusion; IV Intake: 1000ml kj2 19:53 Drug: Ondansetron IVP 4 mg IVP once; over 2 minutes Route: IVP; Site: right antecubital;kj2 20:27 Follow up: Response: No adverse reaction; Nausea is decreased kj2 21:40 Drug: Potassium PO Effervescent Tablet 25 mEq PO once; dissolve in 4 ounces of water or kj2 juice Route: PO; 22:25 Follow up: Response: No adverse reaction kj2 21:40 Drug: Meclizine PO 25 mg PO once Route: PO; kj2 22:25 Follow up: Response: No adverse reaction kj2 22:44 Drug: metoCLOPramide IVP 10 mg IVP once; over 1 to 2 minutes Route: IVP; Site: right kj2 antecubital; 07/29 00:36 Follow up: Response: No adverse reaction kj2 Disposition Summary: 07/29/24 00:07 Discharge Ordered Notes: Location: Home sb4 Problem: new sb4 Symptoms: have improved sb4 Condition: Stable sb4 Diagnosis - Essential (primary) hypertension sb4 - Dizziness and giddiness sb4 Followup: sb4 - With: Emergency Department - When: As needed - Reason: Trouble breathing, Worsening of condition Discharge Instructions: - Discharge Summary Sheet sb4 - Potassium Content of Foods sb4 - Hypertension, Adult, Zhna-[id number] sb4 - Dizziness, Jdff-os-Vchc sb4 Forms: - Patient Portal Instructions sb4 - Leadership Thank You Letter sb4 Signatures: Dispatcher [employer] Sabra Paul PA-C PA-C sb4 Halie Manley, RN RN kj2 Corrections: (The following items were deleted from the chart) 07/28 19:40 19:30 Ondansetron PO 4 mg PO once ordered. sb4 sb4
--- NOTE | 2024-07-29 00:08 | ER ---
Nurse's Notes [facility] Name: Javed Mejia Age: 39 yrs Sex: Male : 1985 Arrival Date: 07/28/2024 Time: 19:11 Bed 6 Private MD: Diagnosis: Essential (primary) hypertension;Dizziness and giddiness Presentation: 07/28 19:19 Chief complaint: EMS states: NAUSEA/VOMITING, DIZZINESS, RINGING IN EARS. Coronavirus kj2 screen: At this time, the client does not indicate any symptoms associated with coronavirus-19. Ebola Screen: No symptoms or risks identified at this time. Initial Sepsis Screen: Does the patient meet any 2 criteria? Yes Does the patient have a suspected source of infection? No. Patient's initial sepsis screen is negative. Risk Assessment: Do you want to hurt yourself or someone else? Patient reports no desire to harm self or others. Onset of symptoms was July 28, 2024. 19:19 Method Of Arrival: EMS: [facility] kj2 19:19 Acuity: MARCE 3 kj2 Triage Assessment: 19:21 General: Appears in no apparent distress. Behavior is calm, cooperative. Pain: Denies kj2 pain. EENT: Reports ringing in BOTH EARS since SINCE 1500 BOTH EARS. Neuro: Level of Consciousness is awake, alert, obeys commands, Oriented to person, place, time, situation. GI: Reports nausea, vomiting, since 1500 TODAY. : No signs and/or symptoms were reported regarding the genitourinary system. Historical: - Allergies: 19:20 No Known Allergies; kj2 - PMHx: 19:21 Guillan [place]; Multiple Sclerosis; kj2 - PSHx: 19:21 Appendectomy; kj2 - Immunization history:: Adult Immunizations unknown. - Infectious Disease History:: Denies. - Social history:: Smoking status: Reported history of juuling and/or vaping. Screenin:24 [facility] ED Fall Risk Assessment (Adult) History of falling in the last 3 months, kj2 including since admission No falls in past 3 months (0 pts) Confusion or Disorientation No (0 pts) Intoxicated or Sedated No (0 pts) Impaired Gait No (0 pts) Mobility Assist Device Used No (0 pt) Altered Elimination No (0 pt) Score/Fall Risk Level 0 - 2 = Low Risk Maintained a safe environment, Educated pt \T\ family on fall prevention, incl call for assistance when getting out of bed, Hourly rounding (assess needs \T\ fall precautionary measures) done. Abuse screen: Denies threats or abuse. Denies injuries from another. Nutritional screening: No deficits noted. Tuberculosis screening: No symptoms or risk factors identified. Assessment: 19:24 General: SEE TRIAGE ASSESSMENT. kj2 20:28 Reassessment: Patient appears in no apparent distress at this time. Patient and/or kj2 family updated on plan of care and expected duration. Pain level reassessed. Patient is alert, oriented x 3, equal unlabored respirations, skin warm/dry/pink. 22:15 Reassessment: Patient appears in no apparent distress at this time. Patient and/or kj2 family updated on plan of care and expected duration. Pain level reassessed. Patient is alert, oriented x 3, equal unlabored respirations, skin warm/dry/pink. Vital Signs: 19:19 BP 166 / 89; Pulse 83; Resp 18; Temp 98.2; Pulse Ox 98% on R/A; Weight 122.47 kg; kj2 Height 5 ft. 11 in. ; 19:23 BP 166 / 89; Pulse 83; Resp 18; Temp 98.2; Pulse Ox 98% on R/A; kj2 20:28 BP 144 / 81; Pulse 82; Resp 20; Pulse Ox 100% on R/A; kj2 22:15 BP 135 / 78; Pulse 77; Resp 18; Pulse Ox 100% on R/A; kj2 23:20 BP 133 / 78; Pulse 66; Resp 18; Pulse Ox 98% on R/A; kj2 07/29 00:36 BP 119 / 66; Pulse 76; Resp 20; Temp 98; Pulse Ox 98% on R/A; kj2 07/28 19:19 Body Mass Index 37.66 (122.47 kg, 180.34 cm) kj2 ED Course: 07/28 19:17 Patient arrived in ED. kmf 19:17 Halie Manley, RN is Primary Nurse. kj2 19:20 Triage completed. kj2 19:24 Sabra Alcaraz PA-C is PHCP. sb4 19:24 Manuel Alejandra MD is Attending Physician. sb4 19:25 Arm band placed on Patient placed in an exam room, in the treatment room. kj2 19:25 Patient has correct armband on for positive identification. Call light in reach. Side kj2 rails up X 1. Provided Education on: CALL LIGHT, FALL LIGHT. 19:25 No provider procedures requiring assistance completed. kj2 19:52 Inserted saline lock: 20 gauge in right antecubital area, using aseptic technique. kj2 Blood collected. Flushed with 10 mL NS. 20:27 UDS Sent. kj2 20:28 Urinalysis w/ reflexes Sent. kj2 20:30 CT Head Brain wo Cont In Process Unspecified. EDMS 22:58 CT Abd/Pelvis - IV Contrast Only In Process Unspecified. EDMS 07/29 00:38 IV discontinued, intact, bleeding controlled, No redness/swelling at site. Pressure kj2 dressing applied. Administered Medications: 07/28 19:40 CANCELLED (Physician Discretion): ondansetron4 mg PO once sb4 19:52 Drug: NS 0.9% IV 1000 ml IV at 1 bolus Per protocol; 1000 mL bolus Route: IV; Rate: 1 kj2 bolus; Site: right antecubital; 21:24 Follow up: IV Status: Completed infusion; IV Intake: 1000ml kj2 22:44 Follow up: IV Status: Completed infusion; IV Intake: 1000ml kj2 19:53 Drug: Ondansetron IVP 4 mg IVP once; over 2 minutes Route: IVP; Site: right antecubital;kj2 20:27 Follow up: Response: No adverse reaction; Nausea is decreased kj2 21:40 Drug: Potassium PO Effervescent Tablet 25 mEq PO once; dissolve in 4 ounces of water or kj2 juice Route: PO; 22:25 Follow up: Response: No adverse reaction kj2 21:40 Drug: Meclizine PO 25 mg PO once Route: PO; kj2 22:25 Follow up: Response: No adverse reaction kj2 22:44 Drug: metoCLOPramide IVP 10 mg IVP once; over 1 to 2 minutes Route: IVP; Site: right kj2 antecubital; 07/29 00:36 Follow up: Response: No adverse reaction kj2 Medication: 07/28 19:24 VIS not applicable for this client. kj2 Intake: 21:24 IV: 1000ml; Total: 1000ml. kj2 22:44 IV: 1000ml; Total: 2000ml. kj2 Outcome: 07/29 00:07 Discharge ordered by . sb4 00:38 Discharged to home ambulatory, with family, kj2 00:38 Condition: stable 00:38 Discharge instructions given to patient, family, Instructed on discharge instructions, follow up and referral plans. Demonstrated understanding of instructions, follow-up care, 00:41 Patient left the ED. kj2 Signatures: Dispatcher [employer] EDSabra Mullins PATaniaC PA-C sb4 [facility]ma [facility] Halie Manley, RN RN kj2
--- NOTE | 2024-07-29 00:51 | RAD REPORT ---
CT ABDOMEN PELVIS WITH IV CONTRAST CLINICAL INDICATION: Abdominal pain COMPARISON: CT abdomen and pelvis 01/22/2022 TECHNIQUE: CT images of the abdomen and pelvis obtained following adminstration of intravenous contra st. Multiplanar reformats were provided. Dose-optimization techniques such as automated exposure control, iterative reconstruction, and mA and/or kV adjustment for patient size was utilized for this examination. FINDINGS: LOWER CHEST: Unremarkable. LIVER: Unremarkable. BILIARY: Gallbladder is partially contracted and grossly unremarkable. No biliary ductal dilatation PANCREAS: Unremarkable. SPLEEN: Unremarkable. ADRENALS: Unremarkable. KIDNEYS/URETERS: No nephrolithiasis or obstructive uropathy. BOWEL/STOMACH: Unremarkable. APPENDIX: Appendix is surgically absent. MESENTERY/PERITONEUM: Unremarkable. RETROPERITONEUM: No adenopathy. URINARY BLADDER: Unremarkable. REPRODUCTIVE: Unremarkable. VASCULAR: Unremarkable. ABDOMINAL/PELVIC WALL: Small fat containing umbilical hernia. 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 No acute findings. IMPRESSION: No acute inflammatory process in the abdomen and pelvis. Electronically signed by: Nadeen Lund MD 07/28/2024 11:59 PM T Due to temporary technical issues with the PACS/[employer] reporting system, reports are being yefri d by the in-house radiologist without review as a courtesy to ensure prompt reporting the interpreting radiologist is fully responsible for the content of the report. Transcribed Date/Time: 07/29/2024 12:50 AM
[2024-07-29 17:32] VITALS: O2SAT 98
[2024-07-29 17:33] VITALS: BP 119/66; TEMP 98
--- NOTE | 2024-07-30 16:39 | EKG ---
Test Date: 2024-07-28 Test Time: 20:17:19 Fortune Cookie Maker: ERIC MEASUREMENT RESULTS: Intervals: Rate: 74 VT: 144 QRSD: 96 QT: 404 QTc: 448 Hortense: P: 9 VT: 144 QRS: 15 T: 40 INTERPRETIVE STATEMENTS: Normal sinus rhythm Cannot rule out Anterior infarct, age undetermined Abnormal ECG Compared to ECG 06/17/2024 14:57:24 Left ventricular hypertrophy no longer present Myocardial infarct finding still present Electronically Signed On 07-30-24 16:34:02 CDT by Roberto Pugh
== END 2024-07-29 00:41 | disposition home or self-care (01) ==
LOC: ER 19:11
DX: I10 Essential (primary) hypertension (principal); R11.0 Nausea
CPT/HCPCS: 96361; 93005; 85025; 81001; 80048; 36415; 83735; 80076; 84484; 80307; 70450; 74177; 96375; 96374; 99284; Q9967; J8597; J2765; J2405; J7030

== ENCOUNTER 2024-09-25 08:55 | Emergency (ER) | payer MEDICARE ==
[2024-09-25] MEDS ORDERED: NA CHLORIDE 0.9% 1,000 ML ONE (09:36)
[2024-09-25] MEDS ORDERED: KETOROLAC 30 MG/ML INJ ONE (09:45)
[2024-09-25 09:53] LABS: Absolute Eosinophils 0.3 K/uL (0-0.5); Absolute Lymphocytes (CBC) 2.5 K/uL (0.7-4.9); Absolute Monocytes 0.6 K/uL (0.1-1.3); Absolute Neutrophil 4.4 K/uL (1.8-8.0); Basophils % 0.5 % (0-1.3); Eosinophils % 3.7 % (0-4.4); Hematocrit 39.1 % (39.6-49.0); Hemoglobin 13.4 g/dL (13.6-17.9); Lymphocytes % 32.3 % (15.3-44.8); MCH 29.8 pg (27.0-35.0); MCHC 34.3 g/dL (32.0-36.0); MPV 7.2 fL (7.6-11.3); Monocytes % 7.9 % (3.3-12.3); Neutrophils % 55.6 % (41.7-73.7); Nucleated Red Blood Cells % 0.1 % (0-0); Platelets 353 thou/uL (152-406); RBC Red Blood Cell Count 4.49 M/uL (4.33-5.43); Red Cell Distribution Width 12.9 % (12.1-15.2)
--- NOTE | 2024-09-25 10:03 | RAD REPORT ---
Stone Protocol CLINICAL INDICATION: Male, 39 years old.FLANK PAIN TECHNIQUE: CT abdomen and pelvis was performed, without IV contrast, as per department protocol using a CT stone protocol. Axial, sagittal and coronal reconstructions were obtained. One or more of the following dose reduction techniques were used: Automated exposure control, adjustment of the mA and/o r kV according to the patient size, and/or iterative reconstruction. Unless otherwise specified, incidental findings do not require dedicated imaging follow-up. [id number]. IV CONTRAST: Not administered. COMPARISON: 07/28/2024 FINDINGS: The lack of intravenous contrast limits the sensitivity of this exam for evaluation of solid visceral organs, vascular structures, and retroperitoneum. LOWER CHEST: The visualized lung bases are clear. LIVER: Normal in size and contour. No focal lesion. GALLBLADDER/BILE DUCTS: No biliary ductal dilatation.? PANCREAS: No mass, ductal dilation, or yung-pancreatic fluid. Pancreatic atrophy SPLEEN: Normal size. No focal lesion. ADRENALS: Normal; no mass. KIDNEYS AND URETERS: Normal size and contour. No hydronephrosis. No renal or ureteral calculi. URINARY BLADDER: Normal contour. GASTROINTESTINAL TRACT: Stomach is non-dilated. Small bowel has normal course and caliber. No colonic wall thickening or pericolonic inflammatory changes. Appendectomy. PERITONEUM: No free fluid. ABDOMINAL AORTA AND OTHER VESSELS: Normal caliber aorta and IVC. REPRODUCTIVE ORGANS: No pathologic process. MUSCULOSKELETAL: No acute or suspicious osseous abnormality. ADDITIONAL FINDINGS: None. IMPRESSION: No acute or significant abnormalities in the abdomen or pelvis, with evaluation limited by lack of IV contrast. No urinary tract calculi.
[2024-09-25 10:05] LABS: Albumin 3.9 g/dL (3.4-5.0); Albumin/Globulin Ratio 0.8 (1.1-1.8); Anion Gap 8.9 mEq/L (5.0-15.0); Bilirubin Total 0.3 mg/dL (0.2-1.0); Globulin 4.7 g/dL (2.3-3.5); Potassium 3.9 mEq/L (3.5-5.1); Protein, Total 8.6 g/dL (6.4-8.2)
--- NOTE | 2024-09-25 10:56 | ER ---
Nurse's Notes [facility] Name: Javed Mejia Age: 39 yrs Sex: Male : 1985 Arrival Date: 09/25/2024 Time: 08:55 Bed 2 Private MD: Diagnosis: Essential (primary) hypertension;Low back pain Presentation: 09/25 09:18 Chief complaint: Patient states: chronic back pain that has gotten worse. Decided to ss try Kratom on thanksgiving and now believes it is making his blood pressure high. Pt took a dose on thanksgiving which helped his back pain completely, took another dose yesterday, but states he was unable to sleep and the pain got worse. Coronavirus screen: Client denies travel out of the [place] in the last 14 days. Ebola Screen: Patient denies exposure to infectious person. Patient denies travel to an Ebola-affected area in the 21 days before illness onset. Initial Sepsis Screen: Does the patient meet any 2 criteria? No. Patient's initial sepsis screen is negative. Does the patient have a suspected source of infection? No. Patient's initial sepsis screen is negative. Risk Assessment: Do you want to hurt yourself or someone else? Patient reports no desire to harm self or others. Onset of symptoms is unknown. 09:18 Method Of Arrival: Ambulatory ss 09:18 Acuity: MARCE 3 Triage Assessment: 11:14 General: Appears in no apparent distress. Behavior is. ss Historical: - Allergies: 09:22 No Known Allergies; ss - PMHx: 09:22 Guillan [place]; Multiple Sclerosis; Spina Bifida (Appendectomy); neuropathy; ruptured ss disc and bone spur; - PSHx: 09:22 Appendectomy; ss - Immunization history:: Client reports having NOT received the Covid vaccine. - Infectious Disease History:: Denies. - Social history:: Smoking status: Reported history of juuling and/or vaping. Screenin:30 [facility] ED Fall Risk Assessment (Adult) History of falling in the last 3 months, jl7 including since admission No falls in past 3 months (0 pts) Confusion or Disorientation No (0 pts) Intoxicated or Sedated No (0 pts) Impaired Gait No (0 pts) Mobility Assist Device Used No (0 pt) Altered Elimination No (0 pt) Score/Fall Risk Level 0 - 2 = Low Risk Oriented to surroundings, Maintained a safe environment. Abuse screen: Denies threats or abuse. Denies injuries from another. 11:13 Nutritional screening: No deficits noted. Tuberculosis screening: No symptoms or risk ss factors identified. Assessment: 10:30 General: Appears in no apparent distress. uncomfortable, Behavior is cooperative, jl7 anxious. Pain: Complains of pain in low back area Pain currently is 9 out of 10 on a pain scale. Neuro: Level of Consciousness is awake, alert, obeys commands, Oriented to person, place, time, situation. Cardiovascular: Patient's skin is warm and dry. Respiratory: Airway is patent Respiratory effort is even, unlabored, Respiratory pattern is regular, symmetrical. : Denies burning with urination, pain with urination. Derm: Skin is pink, warm \T\ dry. Musculoskeletal: Swelling absent. 11:30 Reassessment: Patient appears in no apparent distress at this time. No changes from jl7 previously documented assessment. Patient and/or family updated on plan of care and expected duration. Pain level reassessed. Patient is alert, oriented x 3, equal unlabored respirations, skin warm/dry/pink. Vital Signs: 09:18 BP 151 / 101; Pulse 95; Resp 16; Temp 98.5(O); Pulse Ox 100% on R/A; Weight 122.47 kg; ss Height 5 ft. 11 in. ; Pain 10/10; 10:30 BP 125 / 87; Pulse 79; Resp 16; Pulse Ox 97% ; ko1 19:43 BP 125 / 83; Pulse 67; Resp 18; Temp 97.8; Pulse Ox 95% ; Pain 0/10; jl7 09:18 Body Mass Index 37.66 (122.47 kg, 180.34 cm) ss 09:18 Pain Scale: Adult ss 19:43 Pain Scale: Adult jl7 ED Course: 08:57 Patient arrived in ED. mr 08:58 Nidhi Lilly FNP-C [facility] kb 08:58 Manuel Alejandra MD is Attending Physician. kb 09:22 Triage completed. ss 09:22 Arm band placed on right wrist. ss 09:32 Perry Alexander, JESSICA is Primary Nurse. jl7 09:45 Provided Education on: use of call bolivar. jl7 09:45 Patient has correct armband on for positive identification. Pulse ox on. NIBP on. jl7 09:45 Initial lab(s) drawn, by me, sent to lab. Inserted saline lock: 20 gauge in left jl7 antecubital area, using aseptic technique. Blood collected. Flushed with 10 mL NS. 09:57 CT Stone Protocol In Process Unspecified. EDMS 11:00 No provider procedures requiring assistance completed. IV discontinued, intact, jl7 bleeding controlled, No redness/swelling at site. Pressure dressing applied. Administered Medications: 11:12 Discontinued: ns 0.9% 1000 ml IV at 1 bolus Per protocol; to be given as a bolus over ss 60 minutes 09:47 Drug: NS 0.9% IV 1000 ml IV at 1 bolus Per protocol; to be given as a bolus over 60 jl7 minutes Route: IV; Rate: 1 bolus; Site: left antecubital; 11:12 Follow up: Response: No adverse reaction; IV Status: Order to discontinue infusion jl7 09:47 Drug: Ketorolac IVP 15 mg IVP once Route: IVP; Site: left antecubital; jl7 19:43 Follow up: BP 125 / 83; Pulse 67 bpm; Resp 18 bpm; Temp 97.8; Pulse Ox 95% ; Pain 0/10 jl7 Adult; Response: No adverse reaction; Pain is unchanged, physician notified Medication: 19:43 VIS not applicable for this client. jl7 Outcome: 10:56 Discharge ordered by kb 11:09 Patient left the ED. ss 11:13 Discharged to home ambulatory, ss 11:13 Condition: stable 11:13 Discharge instructions given to patient, Signatures: Dispatcher [employer] EDPA Nidhi Lilly, TUBER MACHINE CUTTER-C TUBER MACHINE CUTTER-CkStephanie Riggins, Reg Reg mr Queta Devine, RN RN ss Perry Alexander RN RN jl7 Doris Salas, RN RN ko1 Corrections: (The following items were deleted from the chart) 19:43 11:11 BP 125 / 83; Pulse 67 bpm; Resp 18 bpm; Temp 97.8; Pulse Ox 95% ; Pain 0/10 Adult jl7 ss
--- NOTE | 2024-09-25 10:56 | EDPHYS ---
Physician Documentation [facility] Name: Javed Mejia Age: 39 yrs Sex: Male : 1985 Arrival Date: 09/25/2024 Time: 08:55 Bed 2 Private MD: ED Physician Manuel Alejandra HPI: 09/25 09:11 This 39 yrs old Male presents to ER via Unassigned with complaints of High Blood kb Pressure, Back Pain. 09:11 Pt is a 39 year old male who presents for high blood pressure. States it was 210/111 at kb 0530. Took his normal 40mg lisinopril at 0600. States he took kratum last night and has had low back pain since then and he thinks that is what caused his BP to rise. Denies chest pain. Reports increased urination and dark yellow urine. . Historical: - Allergies: 09:22 No Known Allergies; ss - PMHx: 09:22 Guillan [place]; Multiple Sclerosis; Spina Bifida (Appendectomy); neuropathy; ruptured ss disc and bone spur; - PSHx: 09:22 Appendectomy; ss - Immunization history:: Client reports having NOT received the Covid vaccine. - Infectious Disease History:: Denies. - Social history:: Smoking status: Reported history of juuling and/or vaping. ROS: 09:11 Constitutional: As per HPI kb Exam: 09:15 Constitutional: This is a well developed, well nourished patient who is awake, alert, kb and in no acute distress. Head/Face: Normocephalic, atraumatic. ENT: Moist Mucous membranes Cardiovascular: Regular rate Respiratory: Respirations even and unlabored. No increased work of breathing. Talking in full sentences Abdomen/GI: Soft, non-tender. No distention Skin: Warm, dry with normal turgor. Normal color. MS/ Extremity: Pulses equal, no cyanosis. Neurovascular intact. Full, normal range of motion. Neuro: Awake and alert, GCS 15, oriented to person, place, time, and situation. 09:15 Back: pain, that is mild, that is moderate, of the low back area, ROM is normal, CVA tenderness, that is mild, is noted on the left, Vital Signs: 09:18 BP 151 / 101; Pulse 95; Resp 16; Temp 98.5(O); Pulse Ox 100% on R/A; Weight 122.47 kg; ss Height 5 ft. 11 in. ; Pain 10/10; 10:30 BP 125 / 87; Pulse 79; Resp 16; Pulse Ox 97% ; ko1 19:43 BP 125 / 83; Pulse 67; Resp 18; Temp 97.8; Pulse Ox 95% ; Pain 0/10; jl7 09:18 Body Mass Index 37.66 (122.47 kg, 180.34 cm) ss 09:18 Pain Scale: Adult ss 19:43 Pain Scale: Adult jl7 MDM: 08:58 Medical Screening Exam initiated kb 09:16 Data reviewed: vital signs, nurses notes. kb 10:54 Differential diagnosis: kidney stone, UTI, dehydration, abnormal electrolytes, adverse kb drug reaction. Counseling: I had a detailed discussion with the patient and/or guardian regarding the historical points, exam findings, and any diagnostic results supporting the discharge/admit diagnosis, lab results, radiology results, the need for outpatient follow up, a family practitioner, to return to the emergency department if symptoms worsen or persist or if there are any questions or concerns that arise at home. 10:56 Response to treatment: the patient's symptoms have markedly improved after treatment. 09/25 09:15 Order name: CBC with Diff; Complete Time: 10:11 kb 09/25 09:15 Order name: CMP; Complete Time: 10:11 kb 09/25 09:15 Order name: Lipase; Complete Time: 10:11 kb 09/25 09:15 Order name: CT Stone Protocol; Complete Time: 10:11 kb 09/25 09:15 Order name: IV Saline Lock; Complete Time: 09:47 kb 09/25 09:15 Order name: Labs collected and sent; Complete Time: 09:47 kb Administered Medications: 11:12 Discontinued: ns 0.9% 1000 ml IV at 1 bolus Per protocol; to be given as a bolus over ss 60 minutes 09:47 Drug: NS 0.9% IV 1000 ml IV at 1 bolus Per protocol; to be given as a bolus over 60 jl7 minutes Route: IV; Rate: 1 bolus; Site: left antecubital; 11:12 Follow up: Response: No adverse reaction; IV Status: Order to discontinue infusion jl7 09:47 Drug: Ketorolac IVP 15 mg IVP once Route: IVP; Site: left antecubital; jl7 19:43 Follow up: BP 125 / 83; Pulse 67 bpm; Resp 18 bpm; Temp 97.8; Pulse Ox 95% ; Pain 0/10 jl7 Adult; Response: No adverse reaction; Pain is unchanged, physician notified Disposition Summary: 09/25/24 10:56 Discharge Ordered Notes: Location: Home kb Condition: Stable kb Diagnosis - Essential (primary) hypertension kb - Low back pain kb Followup: kb - With: Emergency Department - When: As needed - Reason: Worsening of condition Followup: kb - With: Private Physician - When: 2 - 3 days - Reason: Recheck today's complaints, Continuance of care, Re-evaluation by your physician Discharge Instructions: - Discharge Summary Sheet kb - Musculoskeletal Pain kb - Hypertension, Adult, [id number] kb Forms: - Medication Reconciliation Form kb - Antibiotic Education kb - Prescription Opioid Use kb - Patient Portal Instructions kb - Leadership Thank You Letter kb Signatures: Dispatcher [employer] Nidhi Aly, SILVINO-C PELT GRADER-Queta Win, RN RN Perry Alexander RN RN jl7
[2024-09-25 11:55] VITALS: TEMP 98.5
[2024-09-25 11:57] VITALS: BP 125/87; O2SAT 97
== END 2024-09-25 11:09 | disposition home or self-care (01) ==
LOC: ER 08:55
DX: I10 Essential (primary) hypertension (principal); M54.50 Low back pain, unspecified; Q05.9 Spina bifida, unspecified
CPT/HCPCS: 96361; 85025; 36415; 83690; 80053; 76377; 74176; 96374; 99284; J7030